=== PATIENT | male | born 1945 | race Caucasian/White ===

== ENCOUNTER → 2019-09-22 | Outpatient (CLI) | payer MEDICARE, BC, OTHER ==
--- NOTE | 2019-09-22 09:20 | US ---
EXAMINATION TYPE: US groin LT DATE OF EXAM: 09/22/2019 COMPARISON: NONE CLINICAL HISTORY: R10.32 Left lower quadrant pain. Intermittent left groin sharp pains Left groin: no abnormality seen at this time at patient's area of concern Right groin for comparison: no abnormality seen at this time IMPRESSION: No suspicious groin mass, hernia, or adenopathy seen on images saved with comparison vie ws of the right groin noted.
== END ==
LOC: RADUSWWP 07:52
PROVIDERS: ATTEND Family Medicine
DX: R10.32 Left lower quadrant pain (principal)

== ENCOUNTER → 2021-08-21 | Outpatient (CLI) | payer MEDICARE, OTHER ==
--- NOTE | 2021-08-21 08:06 | US ---
EXAMINATION TYPE: US duplex aorta DATE OF EXAM: 08/21/2021 COMPARISON: NONE CLINICAL HISTORY: Z13.6 AAA Screening. EXAM MEASUREMENTS: Abdominal Aorta: Proximal: 2.1x2.0 Mid: 1.8x1.5 Distal: 1.8x1.8 Bifurcation: 1.2x1.0 1.1x1.1 PLaque seen within Aorta seen through the bifurcation. IMPRESSION: No greater than 3.0 cm AAA
--- NOTE | 2021-08-21 08:41 | US ---
EXAMINATION TYPE: US scrotum with doppler. Grayscale and color Doppler Duplex imaging performed of ana maria ann scrotum. DATE OF EXAM: 08/21/2021 COMPARISON: NONE CLINICAL HISTORY: Testicular tenderness . 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 Presence of hydroceles: Left sided Presence of varicoceles: No Left testicular appendage 0.3x0.4x0.3cm Left epidymidis heterogenous solid region with microcalculi measures 1.4x1.6x0.9cm Possible left tail epidymidis appendage 0.7x0.5x0.5cm Right testicle and epididymis surgically absent. Small to moderate-sized left scrotal fluid collectio n or hydrocele. Enlarged heterogeneous left epididymis along periphery of left testicle. Normal size left testicle. Satisfactory blood flow left testicle. IMPRESSION: Satisfactory blood flow to left testicle noted. Small to moderate-sized left scrotal fluid collection or hydrocele. Heterogeneous enlarged epididymis . Advise short-term ultrasound follow-up in 2-3 months time to reassess peripheral heterogeneous hype rechoic area felt to reflect part of enlarged epididymis versus peripheral testicular lesion.
== END | disposition home or self-care (01) ==
LOC: RADUSWWP 07:08
PROVIDERS: ATTEND Family Medicine
DX: Z13.6 Encounter for screening for cardiovascular disorders (principal); N50.89 Other specified disorders of the male genital organs; Z85.47 Personal history of malignant neoplasm of testis
CPT/HCPCS: 76870; 93975; 93979

== ENCOUNTER → 2022-05-01 | Outpatient (CLI) | payer MEDICARE, OTHER ==
--- NOTE | 2022-05-01 09:55 | US ---
EXAMINATION TYPE: US scrotum with doppler. Grayscale and color Doppler Duplex imaging performed of t seth scrotum. DATE OF EXAM: 05/01/2022 COMPARISON: Carotid ultrasound 08/21/2021 CLINICAL HISTORY: C62.90 Testicular Cancer. Right surgically absent due to CA 20+ years ago, left ten derness on and off EXAM MEASUREMENTS: TESTICLES: Right Testicle: surgically absent Left Testicle: 3.0 x 2.7 x 1.8 cm EPIDIDYMIS HEAD: Right Epididymis: surgically absent Left Epididymis: 1.5 cm Doppler performed to assess for testicular vascularity; good unilateral color flow and waveforms are seen. There is no evidence of testicular torsion. Presence of hydroceles: moderate pocket of fluid seen medially Presence of varicoceles: no Right testicle and epididymis is surgically absent. Moderate size left hydrocele redemonstrated. Norm al left testicle. Left epididymis is heterogenous in appearance without focal lesion. No increased fl ow within the epididymis to suggest epididymitis. IMPRESSION: 1. Right testicle and epididymis are surgically absent. 2. No evidence for left testicular torsion. 3. Moderate sized left hydrocele redemonstrated. 4. Heterogenous left epididymis without suspicious focal lesion. No increased flow within the epidid ymis to suggest epididymitis.
== END | disposition home or self-care (01) ==
LOC: RADUSWWP 09:14
PROVIDERS: ATTEND Urology
DX: C62.90 Malignant neoplasm of unspecified testis, unspecified whether descended or undescended (principal)
CPT/HCPCS: 76870; 93976

== ENCOUNTER → 2024-01-08 | Outpatient (CLI) | payer MEDICARE, OTHER ==
[2024-01-08 15:41] LABS: ALT 24 U/L (10-49); AST 28 U/L (14-35); Albumin 4.4 g/dL (3.8-4.9); Albumin/Globulin Ratio 1.83 Ratio (1.60-3.17); Alkaline Phosphatase 71 U/L (41-126); BUN/Creat Ratio 17.94 Ratio (12.00-20.00); Blood Urea Nitrogen 28.7 mg/dL (9.0-27.0); Calcium 10.2 mg/dL (8.7-10.3); Carbon Dioxide 23.7 mmol/L (21.6-31.8); Chloride 103 mmol/L (96-109); Globulin 2.4 g/dL (1.6-3.3); Glucose 138 mg/dL (70-110); Magnesium 1.8 mg/dL (1.5-2.4); Potassium 4.7 mmol/L (3.5-5.5); Sodium 140 mmol/L (135-145); Total Bilirubin 0.9 mg/dL (0.3-1.2); Total Protein 6.8 g/dL (6.2-8.2)
[2024-01-08 16:18] LABS: Basophils # (A) 0.04 X 10*3/uL (0.00-0.10); Basophils % (A) 0.5 %; Eosinophils # (A) 0.25 X 10*3/uL (0.04-0.35); Eosinophils % (A) 3.2 %; HCT 44.6 % (39.6-50.0); HGB 14.7 g/dL (13.0-17.0); Lymphocytes # (A) 1.63 X 10*3/uL (0.90-5.00); Lymphocytes % (A) 20.9 %; MCH 30.4 pg (27.0-32.0); MCV 92.3 FL (80.0-97.0); Mean Platelet Volume 9.7 FL (9.5-12.2); Monocytes # (A) 0.57 X 10*3/uL (0.20-1.00); Monocytes % (A) 7.3 %; NRBC Per 100 WBC 0 X 10*3/uL (0.00-0.01); Neutrophils # (A) 5.27 X 10*3/uL (1.80-7.70); Neutrophils % (A) 67.6 %; Platelet Count 195 X 10*3/uL (140-440); RBC 4.83 X 10*6/uL (4.40-5.60); RDW 12.6 % (11.5-14.5)
== END | disposition home or self-care (01) ==
LOC: LABWHC1 08:26
PROVIDERS: ATTEND Internal Medicine Clinical Cardiac Electrophysiology
DX: I10 Essential (primary) hypertension (principal); E78.5 Hyperlipidemia, unspecified; R55 Syncope and collapse
CPT/HCPCS: 36415; 80053; 80061; 83036; 83735; 84403; 84443; 85025

== ENCOUNTER 2024-03-09 08:17 | Day surgery (SDC) | payer MEDICARE, OTHER ==
[~2024-03-09 08:17] MED LIST: SODIUM CHLORIDE 0.9% 1,000 ML IV SCH
[2024-03-09 08:56] VITALS: BP 144/67; PULSE 58; RESP 16; TEMP 97.6
[2024-03-09] MEDS: SODIUM CHLORIDE 0.9% 500 ML 500 ML IV ONE (08:56)
--- NOTE | 2024-03-09 17:18 | P.EPPROC ---
- EP Procedure Note Electrophysiology Procedure Note: Diagnosis Recurrent presyncope Twelve-lead EKG shows a biventricular paced rhythm Tilt table test Baseline blood pressure 152/70 mmHg, baseline heart rate 57 beats a minute Patient was tilted upright in angle of 70 degrees per protocol There was an immediate dip in blood pressure to 124/52 mmHg, pulse rate remained stable His blood pressure immediately improved to 144/67 mmHg Thereafter there was a very gradual, slow decline in his blood pressure and the lowest blood pressure recorded was 97/54 mmHg At no point did he have any episodes of syncope or presyncope When he was laid supine his blood pressure improved to 146/69 mmHg Impression Biventricular paced rhythm Initial orthostasis, asymptomatic: Followed by rapid normalization of blood pressure Followed by evidence of Orthostatic hypotension syndrome, mild and asymptomatic
== END 2024-03-09 11:39 | disposition home or self-care (01) ==
LOC: CATHEP 08:17
PROVIDERS: ATTEND Internal Medicine Clinical Cardiac Electrophysiology
DX: I95.1 Orthostatic hypotension (principal); I42.8 Other cardiomyopathies; I25.10 Atherosclerotic heart disease of native coronary artery without angina pectoris; I11.0 Hypertensive heart disease with heart failure; I50.9 Heart failure, unspecified; I47.20 Ventricular tachycardia, unspecified; E78.5 Hyperlipidemia, unspecified; I65.23 Occlusion and stenosis of bilateral carotid arteries; R56.9 Unspecified convulsions; Z95.810 Presence of automatic (implantable) cardiac defibrillator; Z87.891 Personal history of nicotine dependence; Z79.02 Long term (current) use of antithrombotics/antiplatelets; Z79.899 Other long term (current) drug therapy
CPT/HCPCS: 93660

== ENCOUNTER 2024-08-19 09:14 | Emergency (ER) | payer MEDICARE, OTHER ==
[2024-08-19 09:21] VITALS: RESP 18; TEMP 98
[2024-08-19 10:07] LABS: Basophils % (A) 0 %; Eosinophils # (A) 0.1 k/uL (0-0.7); Eosinophils % (A) 1 %; HCT 40.3 % (39.0-53.0); HGB 13.6 gm/dL (13.0-17.5); Lymphocytes # (A) 1.3 k/uL (1.0-4.8); Lymphocytes % (A) 16 %; MCH 31.4 pg (25.0-35.0); MCHC 33.8 g/dL (31.0-37.0); MCV 93.1 fL (80.0-100.0); Mean Platelet Volume 7.2; Monocytes # (A) 0.4 k/uL (0-1.0); Monocytes % (A) 5 %; Neutrophils # (A) 6.5 k/uL (1.3-7.7); Neutrophils % (A) 76 %; Platelet Count 159 k/uL (150-450); RBC 4.33 m/uL (4.30-5.90); RDW 12.7 % (11.5-15.5); WBC 8.5 k/uL (3.8-10.6)
--- NOTE | 2024-08-19 10:14 | ED ---
Recheck HPI - General Chief Complaint: Recheck/Abnormal Lab/Rx Stated Complaint: low potassium Time Seen by Provider: 08/19/24 09:36 Source: patient, RN notes reviewed Mode of arrival: ambulatory Limitations: no limitations - History of Present Illness Initial Comments: This is a 78-year-old male who presents to the emergency department for hyperkalemia. Patient had blood work done 2 days ago as part of his routine physical examination. He received a call saying that his potassium was 5.9 and he needed to come here for further evaluation. Denies any chest pain or shortness of breath and states that he otherwise feels fine. Denies any new medications. Denies any history of hyperkalemia. MD Complaint: abnormal lab - Related Data Home Medications Medication Instructions Recorded Confirmed Losartan Potassium 25 mg PO DAILY 01/26/16 08/19/24 Sertraline HCl 100 mg PO DAILY 01/26/16 08/19/24 Spironolactone 25 mg PO DAILY 01/26/16 08/19/24 Atorvastatin [Lipitor] 40 mg PO DAILY 03/06/24 08/19/24 Clopidogrel [Plavix] 75 mg PO DAILY 03/06/24 08/19/24 Metoprolol Succinate [Metoprolol 25 mg PO DAILY 03/06/24 08/19/24 Succinate ER] Allergies Allergy/AdvReac Type Severity Reaction Status Date / Time No Known Allergies Allergy Verified 08/19/24 10:43 Review of Systems ROS Statement: Those systems with pertinent positive or pertinent negative responses have been documented in the HPI. ROS Other: All systems not noted in ROS Statement are negative. Past Medical History Past Medical History: Cancer Additional Past Medical History / Comment(s): HX OF RT TESTICULAR CA, SEE DR COUGHLIN'S H&P History of Any Multi-Drug Resistant Organisms: None Reported Past Surgical History: AICD, Appendectomy, Bowel Resection, Joint Replacement, Orthopedic Surgery Additional Past Surgical History / Comment(s): RT TESTICLE REMOVED, LT. KNEE REPLACEMENT, LT.SHOULDER SX, RUPTURED APPENDIX, ?BOWEL RESECTION, PANCREAS DEBRIDED, R/T BACTERIAL INFECTION. RT CAROTID ARTERY "TIED OFF" R/T WOUND IN [place], SCHRAPNEL IN NECK AND LEG, Rt. eardrum sx. x4 Additional Past Anesthesia/Blood Transfusion Reaction / Comment(s): SPOUSE STATES "WAS TOLD HE WAS A DIFFICULT INTUBATION" AFTER ONE SX Type of Cardiac Device: AICD Device Placement Date:: 2009? Past Psychological History: Anxiety, Depression, PTSD Smoking Status: Former smoker Past Alcohol Use History: Occasional Past Drug Use History: Marijuana General Exam Limitations: no limitations General appearance: alert, in no apparent distress Head exam: Present: atraumatic, normocephalic, normal inspection Respiratory exam: Present: normal lung sounds bilaterally. Absent: respiratory distress, wheezes, rales, rhonchi, stridor Cardiovascular Exam: Present: regular rate, normal rhythm, normal heart sounds. Absent: systolic murmur, diastolic murmur, rubs, gallop, clicks Neurological exam: Present: alert, oriented X3, CN II-XII intact Psychiatric exam: Present: normal affect, normal mood Skin exam: Present: warm, dry, intact, normal color. Absent: rash Course Vital Signs 08/19/24 08/19/24 09:19 10:44 Temperature 98 F 98 F Pulse Rate 60 62 Respiratory 18 18 Rate Blood Pressure 119/69 118/71 O2 Sat by Pulse 98 98 Oximetry Medical Decision Making - Medical Decision Making This is a 78 year old male who presents to the emergency department for hyperkalemia. Was pt. sent in by a medical professional or institution? @ -No Did you speak to anyone other than the patient for history? @ -No Did you review nursing and triage notes? @ -Yes, and I agree, it is accurate with regards to the patient's symptoms. Were old charts reviewed? @ -Potassium from 08/17/2024 which was 5.9. Differential Diagnosis? @ -Hemolysis, medication, renal failure, this is not meant to be an all- inclusive list. EKG interpreted by me (3pts min.)? @ -Not obtained X-rays interpreted by me (1pt min.)? @ -Not obtained CT interpreted by me (1pt min.)? @ -Not obtained U/S interpreted by me (1pt. min.)? @ -Not obtained What testing was considered but not performed? (CT, X-rays, U/S, labs)? Why? @ -None What meds were considered but not given? Why? @ -None Did you discuss the management of the patient with other professionals? @ -No Did you reconcile home meds? @ -No Was smoking cessation discussed for >3mins.? @ -No Was critical care preformed (if so, how long)? @ -No Were there social determinants of health that impacted care today? How? (Homelessness, low income, unemployed, alcoholism, drug addiction, transportation, low edu. Level, literacy, decrease access to med. care, nursing home, rehab)? @ -No Was there de-escalation of care discussed even if they declined? (Discuss DNR or withdrawal of care, Hospice)? @ -No What co-morbidities impacted this encounter? (DM, HTN, Smoking, COPD, CAD, Cancer, CVA, Hep., AIDS, mental health diagnosis, sleep apnea, morbid obesity)? @ -None Was patient admitted / discharged? @ -Discharged. Potassium from lab work obtained 2 days ago was 5.9. Repeat lab work obtained here and potassium was found to be 4.8. Renal function is stable when compared with prior. Advised that this may be related to hemolysis. Given that potassium is currently within normal limits, patient can be discharged home to follow-up with his primary care provider. Case discussed with ED attending Dr. Jones. Return precautions reviewed in depth, the patient is instructed to return to the emergency department with any new, worsening, or concerning symptoms. Patient verbalized understanding. Undiagnosed new problem with uncertain prognosis? @ -None Drug Therapy requiring intensive monitoring for toxicity (Heparin, Nitro, Ins ulin, Cardizem)? @ -None Were any procedures done? @ -None Diagnosis/symptom? @ -Abnormal lab value Acute, or Chronic, or Acute on Chronic? @ -Acute Uncomplicated (without systemic symptoms) or Complicated (systemic symptoms)? @ -Uncomplicated Side effects of treatment? @ -None Exacerbation, Progression, or Severe Exacerbation] @ -Not applicable Poses a threat to life or bodily function? @ -Not at this time - Lab Data Result diagrams: 08/19/24 10:00 08/19/24 10:00 Lab Results 08/19/24 08/19/24 Range/Units 10:00 10:00 WBC 8.5 (3.8-10.6) k/uL RBC 4.33 (4.30-5.90) m/uL Hgb 13.6 (13.0-17.5) gm/dL Hct 40.3 (39.0-53.0) % MCV 93.1 (80.0-100.0) fL MCH 31.4 (25.0-35.0) pg MCHC 33.8 (31.0-37.0) g/dL RDW 12.7 (11.5-15.5) % Plt Count 159 (150-450) k/uL MPV 7.2 Neutrophils % 76 % Lymphocytes % 16 % Monocytes % 5 % Eosinophils % 1 % Basophils % 0 % Neutrophils # 6.5 (1.3-7.7) k/uL Lymphocytes # 1.3 (1.0-4.8) k/uL Monocytes # 0.4 (0-1.0) k/uL Eosinophils # 0.1 (0-0.7) k/uL Basophils # 0.0 (0-0.2) k/uL Sodium 138 (137-145) mmol/L Potassium 4.8 (3.5-5.1) mmol/L Chloride 111 H (98-107) mmol/L Carbon Dioxide 22 (22-30) mmol/L Anion Gap 5 mmol/L BUN 39 H (9-20) mg/dL Creatinine 1.57 H (0.66-1.25) mg/dL Est GFR (CKD-EPI)AfAm 49 (>60 ml/min/1.73 sqM) Est GFR (CKD-EPI)NonAf 42 (>60 ml/min/1.73 sqM) Glucose 124 H (74-99) mg/dL Calcium 9.6 (8.4-10.2) mg/dL Total Bilirubin 1.0 (0.2-1.3) mg/dL AST 27 (17-59) U/L ALT 23 (4-49) U/L Alkaline Phosphatase 64 (38-126) U/L Total Protein 6.7 (6.3-8.2) g/dL Albumin 4.3 (3.5-5.0) g/dL Disposition Clinical Impression: Abnormal laboratory test Disposition: HOME SELF-CARE Additional Instructions: Return to the emergency department with any new, worsening, or concerning sy mptoms. Follow up with your primary care provider. Is patient prescribed a controlled substance at d/c from ED?: No Referrals: Yunior Olmos MD [Primary Care Provider] - 1-2 days Time of Disposition: 10:34
[2024-08-19 10:23] LABS: ALT 23 U/L (4-49); AST 27 U/L (17-59); African American GFR (CKD) 49 (>60 ml/min/1.73 sqM); Albumin 4.3 g/dL (3.5-5.0); Alkaline Phosphatase 64 U/L (38-126); Anion Gap 5 mmol/L; Blood Urea Nitrogen 39 mg/dL (9-20); Calcium 9.6 mg/dL (8.4-10.2); Carbon Dioxide 22 mmol/L (22-30); Chloride 111 mmol/L (98-107); Glucose 124 mg/dL (74-99); Non-African American GFR(CKD) 42 (>60 ml/min/1.73 sqM); Potassium 4.8 mmol/L (3.5-5.1); Sodium 138 mmol/L (137-145); Total Protein 6.7 g/dL (6.3-8.2)
[2024-08-19 10:46] VITALS: BP 118/71; PULSE 62
== END 2024-08-19 10:44 | disposition home or self-care (01) ==
LOC: EC 09:14
DX: R79.9 Abnormal finding of blood chemistry, unspecified (principal); Z87.891 Personal history of nicotine dependence
CPT/HCPCS: 36415; 80053; 85025; 99285

== ENCOUNTER → 2024-09-08 | Outpatient (CLI) | payer MEDICARE, OTHER ==
--- NOTE | 2024-09-08 14:08 | US ---
EXAMINATION TYPE: US groin RT DATE OF EXAM: 09/08/2024 COMPARISON: NONE CLINICAL INDICATION: Male, 78 years old with history of M79.651 PAIN IN RIGHT THIGH; right groin / th igh pain x several years TECHNIQUE: several images taken at patients area of concern FINDINGS: no discrete abnormality noted to account for patient's pain IMPRESSION: No significant abnormality in the right groin which is the patient's area of clinical co ncern. There is no discrete mass or fluid collection. [facility], , 09/08/2024 2:05 PM
== END | disposition home or self-care (01) ==
LOC: RADUSWWP 13:36
PROVIDERS: ATTEND Family Medicine
DX: M79.651 Pain in right thigh (principal)

== ENCOUNTER → 2024-12-16 | Outpatient (CLI) | payer MEDICARE, OTHER ==
--- NOTE | 2024-12-16 14:46 | XR ---
EXAMINATION TYPE: XR Hip Complete RT DATE OF EXAM: 12/16/2024 2:30 PM COMPARISON: None CLINICAL INDICATION: Male, 78 years old with history of M25.551 R Hip pain R10.31 R Inguinal pain; PH H, pain TECHNIQUE: 2 views FINDINGS: There is mild degenerative change of the right hip with some axial joint space narrowing and marginal spurring. Mild degenerative change at the pubic symphysis. No acute fracture, subluxation, dislocati on. IMPRESSION: Mild right hip OA. No acute osseous abnormality seen. [facility], Workstation: [email or web address], 12/16/2024 2:43 PM
== END | disposition home or self-care (01) ==
LOC: RADXRMAIN 14:13
PROVIDERS: ATTEND Family Medicine
DX: M16.11 Unilateral primary osteoarthritis, right hip (principal); R10.31 Right lower quadrant pain
CPT/HCPCS: 73502